=== PATIENT | female | born 1940 | race Caucasian/White ===

== ENCOUNTER 2016-10-15 19:33 | Emergency (ER) | payer OTHER, BC ==
[2016-10-15 19:41] VITALS: BP 146/49; PULSE 79; TEMP 99; BMI 23.5
--- NOTE | 2016-10-15 20:29 | PDOC ---
History of Present Illness - History of Present Illness Initial Comments: 10/15/16 20:43 The patient is a 76 year old female with a past medical history of dementia, presents to the emergency department with a complaint of right rib pain. Patient was taken out of the assisted living home to be with family for the day when the patient had wondered off. When the patient was found she was complaining of right rib. She questionably fell. Patients rib pain is provoked with movement and coughing. Patient also notes right sided upper abdominal pain also worsened with movements and use of her accessory muscles. Patient is a poor historian, Obtained by caregiver/family in the room HPI PAST MEDICAL HISTORY: dementia PAST SURGICAL HISTORY: no significant history FAMILY HISTORY: no pertinant history SOCIAL HISTORY: Pt lives in assisted living MEDICATIONS: reviewed ALLERGIES: As per nursing notes ROS General: No fevers or chills, no weakness, no weight loss HEENT: No change in vision. No sore throat,. No ear pain CardioVascular: No chest pain or shortness of breath Respiratory:No cough, or wheezing. Gastrointestinal: no nausea, vomitting, diarrhea or constipation, No rectal bleeding Genitourinary: Yes: Abdomen pain No dysuria, hematuria, or frequency Musculoskeletal: Yes: Right rib pain No joint or muscle pain or swelling Neurologic: No headache, vertigo, dizziness or loss of consciousness Psychiatric: no depression Skin: No rashes or easy bruising Endocrine: no increased thirst or abnormal weight change Allergic: no skin or latex allergy All other systems reviewed and normal Exam: General: Patient is elderly, easily agitated . Well-nourished well-developed individual, no acute distress HEENT: Throat: Normal, tonsils normal, no erythema or exudate Neck: Supple, no meningeal signs, no lymphadenopathy Eyes::Pupils equal reactive and round, extraocular motion intact Chest: Small contusion of the right lower ribs laterally, with tenderness to palpation Cardiac: S1-S2 normal, regular rate and rhythm, no murmurs rubs or gallops Respiratory: Lungs clear to auscultation bilateral Abdomen: Soft, nondistended, normal bowel sounds, Patient complains of tenderness when she uses the muscles of her abdominal wall but no tenderness to palpation on the abdomen. Extremities: Warm, dry, no cyanosis, clubbing, or edema Skin: No rashes Neuro: Alert and confused, easily upset and angered with questions, answers question inappropriately secondary to dementia. nonfocal exam, grossly intact, normal gait <Pelon Chiang - Last Filed: 10/15/16 21:18> - General History Source: Family Exam Limitations: No Limitations - History of Present Illness Initial Comments: 10/15/16 20:49 A portion of this note was documented by scribe services under my direction. I have reviewed the details of the note, within reason, and agree with the documentation. The case summary and management plan written by me. Xrays of chest and ribs: no acute fracture or dislocation Assessment and plan: This is an elderly 76-year-old female who lives in an assisted living facility and wandered off today. When patient was found she complained of some pain in her right rib area patient is demented to the point that she is unable to say what happened and denied any pain here in the emergency room or denied falling or any injury. However on exam a was noted there was a contusion over the right ribs with some mild tenderness. The rest of patient's exam was normal with no trauma or injury noted. Patient had a chest x-ray and rib x-rays which were negative for any acute pathology. Patient discharged home with her caregiver will follow-up with her primary care doctor as needed. 10/16/16 02:24 CAT scan of head cervical spine, abdomen and pelvis all showed no acute pathology. CT scan of chest shows fracture the seventh 8/9 and 10th rib. There is no associated pulmonary contusion there is no hemothorax and there is a very very very tiny pneumothorax otherwise unremarkable. Assessment and plan: This is a 76-year-old female with severe dementia who fell and broke ribs 789 and 10. Patient is no acute distress. Patient complains only of pain when she moves and uses her muscles in the area. Otherwise patient has not required any pain medication. Her oxygen saturation is 99-100% on room air. She appears to have no difficulty taking deep respirations and breathing in spite of the rib fractures. Patient has not been given any pain medication and has not asked for any and does not say she wants anyone asked. Patient discharged home with her family and will follow-up with her primary care DrZhane next week. <Semaj Clark I - Last Filed: 10/16/16 02:28> - General Chief Complaint: Pain Stated Complaint: PAIN Time Seen by Provider: 10/15/16 20:06 Past History <Pelon Chiang - Last Filed: 10/15/16 21:18> - Past Medical History Dementia: Yes Thyroid Disease: Yes - Psycho/Social/Smoking Cessation Hx Anxiety: No Suicidal Ideation: No Smoking History: Never smoked <Semaj Clark I - Last Filed: 10/16/16 02:28> - Past Medical History Allergies/Adverse Reactions: Allergies Allergy/AdvReac Type Severity Reaction Status Date / Time Penicillins Allergy Verified 10/15/16 19:39 Home Medications: Ambulatory Orders Levothyroxine [Synthroid -] 25 mcg PO DAILY 10/15/16 Oxybutynin Chloride 5 mg PO BID 10/15/16 Rivastigmine Tartrate [Rivastigmine] 6 mg PO BID 10/15/16 *Physical Exam - Vital Signs Last Vital Signs Temp Pulse Resp BP Pulse Ox 99 F 79 16 146/49 99 10/15/16 19:35 10/15/16 19:35 10/15/16 19:35 10/15/16 19:35 10/15/16 19:35 <Pelon Chiang - Last Filed: 10/15/16 21:18> - Vital Signs Last Vital Signs Temp Pulse Resp BP Pulse Ox 99 F 79 16 146/49 99 10/15/16 19:35 10/15/16 19:35 10/15/16 19:35 10/15/16 19:35 10/15/16 19:35 <Semaj Clark I - Last Filed: 10/16/16 02:28> ED Treatment Course - LABORATORY CBC & Chemistry Diagram: 10/15/16 22:08 10/15/16 22:08 <Semaj Clark I - Last Filed: 10/16/16 02:28> *DC/Admit/Observation/Transfer - Attestations Scribe Attestion: 10/15/16 20:44 Documentation prepared by Pelon Chiang, acting as medical device engineer for Semaj Clark MD <Pelon Chiang - Last Filed: 10/15/16 21:18> - Discharge Dispostion Admit: No <Semaj Clark I - Last Filed: 10/16/16 02:28> Diagnosis at time of Disposition: Fracture of multiple ribs - Discharge Dispostion Disposition: HOME Condition at time of disposition: Stable - Referrals Referrals: STAFF,NOT ON [Primary Care Provider] - - Patient Instructions Additional Instructions: Tylenol or Motrin as needed for pain. Make sure that you return to the emergency room if you develop any shortness of breath or difficulty breathing, fever cough or any other worsening symptoms. Return to the emergency department immediately with ANY new, persistent or worsening symptoms. Continue any medications as previously prescribed by your physician. You should follow up with your primary doctor as soon as possible regarding today's emergency department visit. . Please make sure your doctor reviews the results of your emergency evaluation. Thank you for coming to the Emergency Department today for your care. It was a pleasure to see you today. Please note that your evaluation is INCOMPLETE until you follow-up with your doctor.
[2016-10-15] MEDS ORDERED: ACETAMINOPHEN 500 MG TABLET (FP) PO ONE (20:50)
[2016-10-15] MEDS ORDERED: ACETAMINOPHEN 325 MG TABLET (FP) ONE (20:58)
[2016-10-15 22:21] LABS: BASOPHIL 0.3 % (0-2.0); MCH 28.9 pg (25.7-33.7); MCHC 33.2 g/dl (32.0-36.0); MEAN CELL VOLUME 87.3 fl (80-96); MEAN PLT VOLUME 9.1 fl (7.5-11.1); NEUTROPHILS 82.4 % (42.8-82.8); PLATELET COUNT 188 K/MM3 (134-434); RDW 12.8 % (11.6-15.6); WHITE BLOOD COUNT 5.4 K/mm3 (4.0-10.8)
[2016-10-15 22:33] LABS: ALBUMIN 4.1 g/dl (3.5-5.0); ALK PHOS 66 U/L (32-92); ANION GAP 8 (8-16); BILIRUBIN,TOTAL 0.5 mg/dl (0.2-1.0); CALCIUM 8.9 mg/dl (8.4-10.2); CO2 28 mmol/L (22-28); COCKROFT - GAULT 52.9805; CREATININE 0.9 mg/dl (0.6-1.3); GLUCOSE,RANDOM 119 mg/dl (74-106); SGOT/AST 134 U/L (10-42); SGPT/ALT 88 U/L (10-40); TOT PROT 7.1 g/dl (6.4-8.3)
[2016-10-15 22:44] LABS: CPK(DFH) 779 IU/L (26-140)
[2016-10-15 22:46] LABS: TROPONIN I (DFP) < 0.03 ng/ml (0.03-0.50)
[2016-10-15 23:12] LABS: CK MB 6.6 ng/ml (0.3-4.0)
[2016-10-15] MEDS ORDERED: diazePAM CARPU-JECT 10 MG/2 ML DISP.SYRIN IM ONE (23:41)
[2016-10-15] MEDS ORDERED: diazePAM CARPU-JECT 10 MG/2 ML DISP.SYRIN ONE (23:41)
== END 2016-10-16 02:35 | disposition home or self-care (01) ==
LOC: FER 19:33
PROC: 3E033NZ Introduction of Analgesics, Hypnotics, Sedatives into Peripheral Vein, Percutaneous Approach (ICD-10-PCS; principal; 2016-10-15)
DX: S22.49XA Multiple fractures of ribs, unspecified side, initial encounter for closed fracture (principal); F03.90 Unspecified dementia, unspecified severity, without behavioral disturbance, psychotic disturbance, mood disturbance, and anxiety
CPT/HCPCS: 36415; 70450-TC; 71020-TC; 71101-TC-RT; 71260-TC; 72125-TC; 74177-TC; 80053; 82550; 82553; 84484; 85025; 99283-25